=== PATIENT | female | born 1975 | race Caucasian/White ===

== ENCOUNTER → 2017-02-26 | Outpatient (CLI) | payer SELFPAY ==
[2017-02-26 14:25] LABS: FREE T3 5.04 pg/mL (2.77-5.27)
[2017-02-26 14:39] LABS: THYROID STIMULATING HORMONE 1.25 uIU/mL (0.47-4.68)
[2017-02-26 15:14] LABS: FOLATE 5.39 ng/mL (>2.76)
== END ==
LOC: OD 12:26
PROVIDERS: ATTEND Specialist
DX: G62.9 Polyneuropathy, unspecified (principal)
CPT/HCPCS: 36415; 82607; 82746; 83036; 84439; 84443; 84481; 85652; 86038